=== PATIENT | male | born 1990 | race Caucasian/White ===

== ENCOUNTER 2019-08-14 08:00 | Emergency (ER) | payer SELFPAY ==
[2019-08-14] MEDS ORDERED: METHOCARBAMOL 500 MG TAB ONE (08:32)
[2019-08-14] MEDS ORDERED: TRAMADOL HCL 50 MG TAB ONE ×2 (08:32→08:41)
--- NOTE | 2019-08-14 09:00 | RAD REPORT ---
EXAM DESCRIPTION: RAD - Lumbar Spine 3 Views - 08/14/2019 8:50 am CLINICAL HISTORY: Pain;Lower back pain Radiculopathy COMPARISON: No comparisons FINDINGS: Vertebral body heights appear maintained. No compression fracture noted. Disc spaces are m aintained. No spondylolysis or spondylolisthesis. IMPRESSION: Negative study.
--- NOTE | 2019-08-14 09:50 | ER ---
Nurse's Notes [facility] Name: Artie Kimball Age: 28 yrs Sex: Male : 1990 Arrival Date: 08/14/2019 Time: 08:05 Bed Treatment Private MD: Diagnosis: Low back pain;Muscle spasm of back Presentation: 08/14 08:18 Presenting complaint: Patient states: Lifted something up, sharp pain in lower back jl7 that's throbbing, rated 9/10. Transition of care: patient was not received from another setting of care. Onset of symptoms was August 14, 2019 at 07:30. Risk Assessment: Do you want to hurt yourself or someone else? Patient reports no desire to harm self or others. Initial Sepsis Screen: Does the patient meet any 2 criteria? No. Patient's initial sepsis screen is negative. Does the patient have a suspected source of infection? No. Patient's initial sepsis screen is negative. Care prior to arrival: None. 08:18 Method Of Arrival: Ambulatory [facility] 08:18 Acuity: KRISTEN 4 jl7 Triage Assessment: 08:22 General: Appears in no apparent distress. uncomfortable, Behavior is calm, cooperative, jl7 appropriate for age. Pain: Complains of pain in low back area Pain currently is 9 out of 10 on a pain scale. Quality of pain is described as sharp, throbbing, Pain began 1 hour ago. Is continuous. EENT: No signs and/or symptoms were reported regarding the EENT system. Neuro: Level of Consciousness is awake, alert, obeys commands, Oriented to person, place, time, situation. Cardiovascular: Patient's skin is warm and dry. Respiratory: Airway is patent Respiratory effort is even, unlabored, Respiratory pattern is regular, symmetrical. GI: No signs and/or symptoms were reported involving the gastrointestinal system. : No signs and/or symptoms were reported regarding the genitourinary system. Derm: Skin is pink, warm \T\ dry. Musculoskeletal: Range of motion: intact in all extremities, Reports pain in low back area. Historical: - Allergies: 08:22 SHELLFISH; jl7 08:22 Tylenol; jl7 - Home Meds: 08:22 None [Active]; jl7 - PMHx: 08:22 Deaf; jl7 - PSHx: 08:22 Knee surgery; jl7 - Immunization history:: Adult Immunizations unknown. - Social history:: Smoking status: Patient/guardian denies using tobacco. - Ebola Screening: : No symptoms or risks identified at this time. Screenin:30 Abuse screen: Denies threats or abuse. Denies injuries from another. Nutritional jl7 screening: No deficits noted. Tuberculosis screening: No symptoms or risk factors identified. Fall Risk None identified. Assessment: 08:30 General: See triage assessment. jl7 09:30 Reassessment: Patient appears in no apparent distress at this time. No changes from jl7 previously documented assessment. Patient and/or family updated on plan of care and expected duration. Pain level reassessed. Patient is alert, oriented x 3, equal unlabored respirations, skin warm/dry/pink. 10:24 Reassessment: Pt reports his doesn't go to lunch until 1245, Charge Nurse notified.jl7 10:25 Reassessment: Pt will be discharged when arrives to transport pt. jl7 11:28 Reassessment: Pt moved to treatment room to wait for . Pt has been discharged with jl7 papers and instructions. Vital Signs: 08:22 BP 152 / 92; Pulse 86; Resp 16 S; Temp 98.8(O); Pulse Ox 100% on R/A; Pain 9/10; jl7 10:23 BP 136 / 81; Pulse 66; Resp 16 S; Pulse Ox 100% on R/A; jl7 ED Course: 08:05 Patient arrived in ED. am2 08:09 Michel Farooq MD is Attending Physician. kdr 08:11 Kumar Goncalves RN is Primary Nurse. jl7 08:21 Triage completed. jl7 08:22 Arm band placed on right wrist. jl7 08:30 Patient has correct armband on for positive identification. Placed in gown. Bed in low jl7 position. Call light in reach. Side rails up X 1. Pulse ox on. NIBP on. 08:30 No provider procedures requiring assistance completed. jl7 08:55 Lumbar Spine (3 Views) XRAY In Process Unspecified. EDMS 10:05 Inserted saline lock: 20 gauge in right wrist, using aseptic technique. ,using aseptic jl7 technique. inserted by CATHERINE Davis and ESTUARDO Ridley student. 11:29 IV discontinued, intact, bleeding controlled, No redness/swelling at site. Pressure jl7 dressing applied. Administered Medications: 08:36 Drug: traMADol 100 mg Route: PO; jl7 09:30 Follow up: Response: No adverse reaction; Pain is unchanged, physician notified jl7 08:36 Drug: Robaxin 750 mg Route: PO; jl7 09:30 Follow up: Response: No adverse reaction; Pain is unchanged, physician notified jl7 10:10 Drug: SOLU-Medrol 125 mg Route: IVP; Site: right wrist; jl7 10:30 Follow up: Response: No adverse reaction; Pain is decreased jl7 10:12 Drug: TORadol - Ketorolac 15 mg Route: IVP; Site: right wrist; jl7 10:30 Follow up: Response: No adverse reaction; Pain is decreased jl7 10:15 Drug: Valium 5 mg Route: PO; jl7 11:30 Follow up: Response: No adverse reaction; Pain is decreased jl7 Outcome: 09:48 Discharge ordered by . kdr 11:29 Discharged to home ambulatory, with family. jl7 11:29 Condition: stable 11:29 Discharge instructions given to patient, Instructed on discharge instructions, follow up and referral plans. medication usage, Demonstrated understanding of instructions, follow-up care, medications, Prescriptions given X 3. 11:31 Patient left the ED. jl7 Signatures: Dispatcher [employer] EDMS Michel Farooq MD MD kdr Leal, Jahala, RN RN jl7 Rafaela Woo
--- NOTE | 2019-08-14 09:50 | EDPHYS ---
Physician Documentation [facility] Name: Artie Kimball Age: 28 yrs Sex: Male : 1990 Arrival Date: 08/14/2019 Time: 08:05 Bed Treatment Private MD: ED Physician Michel Farooq HPI: 08/14 08:53 This 28 yrs old Male presents to ER via Ambulatory with complaints of Low kdr Back Pain. 08:53 The patient presents with pain that is acute, and decreased range of motion, and an kdr injury, and spasm, stiffness, tightness. The symptoms are located in the low back. The pain radiates to the lateral aspect of left thigh, left hamstring and left quadriceps. The problem was sustained when bending over, when lifting boxes. Onset: The symptoms/episode began/occurred suddenly, just prior to arrival. Modifying factors: The patient symptoms are alleviated by remaining still, the patient symptoms are aggravated by any movement, bending, coughing. Associated signs and symptoms: The patient has no apparent associated signs or symptoms. Severity of symptoms: At their worst the symptoms were moderate, just prior to arrival, this morning, in the emergency department the symptoms are unchanged. The patient has not experienced similar symptoms in the past. The patient has not recently seen a physician. Historical: - Allergies: 08:22 SHELLFISH; jl7 08:22 Tylenol; jl7 - Home Meds: 08:22 None [Active]; jl7 - PMHx: 08:22 Deaf; jl7 - PSHx: 08:22 Knee surgery; jl7 - Immunization history:: Adult Immunizations unknown. - Social history:: Smoking status: Patient/guardian denies using tobacco. - Ebola Screening: : No symptoms or risks identified at this time. ROS: 08:53 Constitutional: Negative for fever, chills, and weight loss, Eyes: Negative for injury, kdr pain, redness, and discharge, Neck: Negative for injury, pain, and swelling, Cardiovascular: Negative for chest pain, palpitations, and edema, Respiratory: Negative for shortness of breath, cough, wheezing, and pleuritic chest pain, Abdomen/GI: Negative for abdominal pain, nausea, vomiting, diarrhea, and constipation, : Negative for injury, bleeding, discharge, and swelling, MS/Extremity: Negative for injury and deformity, Skin: Negative for injury, rash, and discoloration, Neuro: Negative for headache, weakness, numbness, tingling, and seizure activity. Psych: Negative for depression, anxiety, suicide ideation, homicidal ideation, and hallucinations, Allergy/Immunology: Negative for hives, rash, and allergies, Endocrine: Negative for neck swelling, polydipsia, polyuria, polyphagia, and marked weight changes, Hematologic/Lymphatic: Negative for swollen nodes, abnormal bleeding, and unusual bruising. 08:53 Back: Positive for injury or acute deformity, decreased range of motion, pain at rest, pain with movement, of the lumbar area, Negative for Exam: 08:53 Constitutional: This is a well developed, well nourished patient who is awake, alert, kdr and in no acute distress. Head/Face: Normocephalic, atraumatic. Eyes: Pupils equal round and reactive to light, extra-ocular motions intact. Lids and lashes normal. Conjunctiva and sclera are non-icteric and not injected. Cornea within normal limits. Periorbital areas with no swelling, redness, or edema. Neck: Trachea midline, no thyromegaly or masses palpated, and no cervical lymphadenopathy. Supple, full range of motion without nuchal rigidity, or vertebral point tenderness. No Meningismus. Chest/axilla: Normal chest wall appearance and motion. Nontender with no deformity. No lesions are appreciated. Cardiovascular: Regular rate and rhythm with a normal S1 and S2. No gallops, murmurs, or rubs. Normal PMI, no JVD. No pulse deficits. Respiratory: Lungs have equal breath sounds bilaterally, clear to auscultation and percussion. No rales, rhonchi or wheezes noted. No increased work of breathing, no retractions or nasal flaring. Abdomen/GI: Soft, non-tender, with normal bowel sounds. No distension or tympany. No guarding or rebound. No evidence of tenderness throughout. Skin: Warm, dry with normal turgor. Normal color with no rashes, no lesions, and no evidence of cellulitis. MS/ Extremity: Pulses equal, no cyanosis. Neurovascular intact. Full, normal range of motion. Neuro: Awake and alert, GCS 15, oriented to person, place, time, and situation. Cranial nerves II-XII grossly intact. Motor strength 5/5 in all extremities. Sensory grossly intact. Cerebellar exam normal. Normal gait. Psych: Awake, alert, with orientation to person, place and time. Behavior, mood, and affect are within normal limits. 08:53 Back: pain, that is moderate, that is severe, of the lumbar area, ROM is painful, with all movement, normal spinal alignment noted, CVA tenderness, is absent, muscle spasm, is appreciated in the left low back, left mid back, right mid back and right low back, Straight leg raises: right lower extremity does not illicit pain, left lower extremity illicits pain, at 30 degrees. Vital Signs: 08:22 BP 152 / 92; Pulse 86; Resp 16 S; Temp 98.8(O); Pulse Ox 100% on R/A; Pain 9/10; jl7 10:23 BP 136 / 81; Pulse 66; Resp 16 S; Pulse Ox 100% on R/A; jl7 MDM: 08:53 Data reviewed: vital signs, nurses notes, lab test result(s), radiologic studies. kdr Counseling: I had a detailed discussion with the patient and/or guardian regarding: the historical points, exam findings, and any diagnostic results supporting the discharge/admit diagnosis, lab results, radiology results, the need for outpatient follow up. 09:48 Patient medically screened. kdr 08/14 08:24 Order name: Lumbar Spine (3 Views) XRAY; Complete Time: 09:47 kdr Administered Medications: 08:36 Drug: traMADol 100 mg Route: PO; jl7 09:30 Follow up: Response: No adverse reaction; Pain is unchanged, physician notified jl7 08:36 Drug: Robaxin 750 mg Route: PO; jl7 09:30 Follow up: Response: No adverse reaction; Pain is unchanged, physician notified jl7 10:10 Drug: SOLU-Medrol 125 mg Route: IVP; Site: right wrist; jl7 10:30 Follow up: Response: No adverse reaction; Pain is decreased jl7 10:12 Drug: TORadol - Ketorolac 15 mg Route: IVP; Site: right wrist; jl7 10:30 Follow up: Response: No adverse reaction; Pain is decreased jl7 10:15 Drug: Valium 5 mg Route: PO; jl7 11:30 Follow up: Response: No adverse reaction; Pain is decreased jl7 Disposition: 08/14/19 09:48 Discharged to Home. Impression: Low back pain, Muscle spasm of back. - Condition is Stable. - Discharge Instructions: Musculoskeletal Pain, Back Pain, Adult, [id number], Back Exercises, [id number]. - Prescriptions for Robaxin 500 mg Oral Tablet - take 2 tablet by ORAL route every 6 hours As needed; 40 tablet. Tramadol 50 mg Oral Tablet - take 1 tablet by ORAL route every 8 hours as needed; 12 tablet. Medrol (David) 4 mg Oral Tablets, Dose Pack - take 1 tablet by ORAL route as directed - follow package instructions; 1 packet. - Medication Reconciliation Form, Thank You Letter, Work release form form. - Follow up: Private Physician; When: 2 - 3 days; Reason: If symptoms return, Further diagnostic work-up, Recheck today's complaints, Continuance of care, Re-evaluation by your physician. - Problem is new. - Symptoms have improved. Signatures: Dispatcher [employer] EDMS Michel Farooq MD MD kdr Leal, Jahala RN RN jl7 Corrections: (The following items were deleted from the chart) 11:31 09:48 08/14/2019 09:48 Discharged to Home. Impression: Low back pain; Muscle spasm of jl7 back. Condition is Stable. Forms are Medication Reconciliation Form, Thank You Letter, Antibiotic Education, Prescription Opioid Use. Follow up: Private Physician; When: 2 - 3 days; Reason: If symptoms return, Further diagnostic work-up, Recheck today's complaints, Continuance of care, Re-evaluation by your physician. Problem is new. Symptoms have improved. kdr
[2019-08-14] MEDS ORDERED: KETOROLAC 30 MG/ML INJ ONE (10:08)
[2019-08-14] MEDS ORDERED: METHYLPREDNISOLONE 125 MG INJ ONE (10:08)
[2019-08-14] MEDS ORDERED: DIAZEPAM 5 MG TABLET ONE (10:08)
[2019-08-14 11:56] VITALS: TEMP 98.8; O2SAT 100
[2019-08-14 11:57] VITALS: BP 136/81
== END 2019-08-14 11:31 | disposition home or self-care (01) ==
LOC: ER 08:00
DX: M62.830 Muscle spasm of back (principal)
CPT/HCPCS: 72100; 96374; 96375; 99284; J2930